=== PATIENT | male | born 1955 | race Caucasian/White ===

== ENCOUNTER → 2023-11-16 15:01 | Outpatient (REF) | payer MEDICARE, SELFPAY | LOC: RCS 15:01 | PROVIDERS: ATTENDING PHYSICIAN Family Medicine | DX: I49.9 Cardiac arrhythmia, unspecified (principal); R06.09 Other forms of dyspnea | CPT/HCPCS: 93017 ==

== ENCOUNTER 2023-11-25 08:51 | Day surgery (SDC) | payer MEDICARE, SELFPAY ==
[2023-11-25] VITALS (13 sets, daily range): BP systolic 92–129; BP diastolic 64–77; BMI 28.4
[2023-11-25] MEDS: LOW STRENGTH ASPIRIN 81 MG PO (09:16)
[2023-11-25] MEDS: NSS 269 ML IV (09:29)
--- NOTE | 2023-11-25 10:40 | ITS.CL.CATH ---
[employer] [facility] - Catheterization
Cardiac Catheterization
Procedure Report:
CARDIAC CATHETERIZATION REPORT
Date of Procedure: 11/25/2023
Referring: Juan Stanton D.O.
INDICATION: Abnormal stress test, dyspnea on exertion, atrial fibrillation.
PROCEDURE:
1. Left heart catheterization
2. Coronary angiography.
ACCESS:
6 [place] right radial artery.
CATHETERS:
1. 5 [place] JR4.
2. 5 [place] JL 3.5.
HEMODYNAMIC DATA
Weight (kg): 89.4
AO (s/d/x, mmHg): 91/69/76
LV (s/x mmHg): 92/10
LEFT VENTRICULOGRAPHY: Not performed.
CORONARY ANGIOGRAPHY
Dominance: Right.
Left Main: Normal size, bifurcating vessel. There is no coronary artery disease.
LAD: Normal size vessel giving rise to 1 significant diagonal. There is no coronary artery disease. 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
Ramus: Congenitally absent.
Circumflex: Normal size, nondominant vessel giving rise to 2 obtuse marginals. OM1 is a small, 1 mm vessel. OM 2 is a much more substantial vessel supplying the majority of the inferolateral wall. There is no coronary artery disease.
RCA: Normal size, dominant vessel. The RPDA is a small, nearly diminutive vessel that only supplies the inferior base of the interventricular septum. Mid and distal septal perforators are supplied by a branch from the acute marginal.
INTERVENTION(S)
None.
Closure Device: Vascular band.
Radiation (mGy): 286.20
DAP (cm2.Gy): 17.4585
Fluoroscopy time (minutes): 2.0
Sedation time (minutes): 16
CONCLUSIONS
1. Right dominant circulation with no coronary artery disease. 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
2. Normal filling pressures (LVEDP = 10 mmHg at 89.4 kg).
3. Symptomatic atrial fibrillation in the absence of coronary disease or elevated filling pressures.
RECOMMENDATIONS:
1. Expectant management after cardiac catheterization via right radial approach.
2. Limited weight bearing on the right wrist for one week.
3. Continue rate control with metoprolol succinate.
4. The patient would clearly benefit from rhythm control. Referral to electrophysiology for consideration of ablation.
Copy to: Juan Stanton D.O., John Herman M.D., Carolyn Gould M.D.
Juan Stanton DO, FACC, FACP
[2023-11-25] MEDS: NSS 1000 IV (10:57)
== END 2023-11-25 13:37 | disposition home or self-care (01) ==
LOC: CATH 08:51
PROVIDERS: ATTENDING PHYSICIAN Internal Medicine Cardiovascular Disease; FAMILY PHYSICIAN Family Medicine
DX: R06.09 Other forms of dyspnea (principal); R94.39 Abnormal result of other cardiovascular function study; I48.91 Unspecified atrial fibrillation; Q24.5 Malformation of coronary vessels
CPT/HCPCS: 93458; C1894; Q9967

== ENCOUNTER → 2023-12-27 12:38 | Outpatient (REF) | payer MEDICARE, SELFPAY ==
[2023-12-27 13:28] LABS: % Basophils 0.6 % (0-2); % Eosinophils 0.7 % (0-6); % Immature Granulocytes 0.4 % (0-0.5); % Lymphocytes 30.2 % (20.5-51.1); % Monocytes 7.2 % (1.7-9.3); % Neutrophils 60.9 % (42.2-75.2); Absolute Basophils 0.1 10^3/uL (0-0.2); Absolute Eosinophils 0.1 10^3/uL (0-0.7); Absolute Lymphocytes 2.5 10^3/uL (1.2-3.4); Absolute Monocytes 0.6 10^3/uL (0.1-0.6); Absolute Neutrophils 4.9 10^3/uL (1.4-6.5); Hematocrit 41.3 % (39.0-52.0); Hemoglobin 14.3 g/dL (13.0-18.0); Mean Corp Hgb Conc. 34.6 g/dL (33.0-37.0); Mean Corpuscular Hgb 29.9 pg (27.0-31.0); Mean Corpuscular Volume 86.4 fL (80.0-94.0); Mean Platelet Volume 9.8 fL (7.4-10.4); Nucleated Red Blood Cells % 0 % (-); Platelet Count 261 10^3/uL (130-400); Red Blood Cell Count 4.78 10^6/uL (4.70-6.10); Red Cell Dist. Width 13.2 % (11.5-14.5); White Blood Cell Count 8.1 10^3/uL (4.8-10.8)
[2023-12-27 13:49] LABS: ALT (SGPT) 25 U/L (0-50); AST (SGOT) 26 U/L (17-59); Albumin 4.5 g/dl (3.5-5.0); Alkaline Phosphatase 63 U/L (38-126); Blood Urea Nitrogen 20 mg/dl (9-20); Calcium 9.4 mg/dl (8.4-10.2); Carbon Dioxide 25 mmol/L (22-30); Chloride 104 mmol/L (98-107); Glucose 92 mg/dl (70-99); Sodium 139 mmol/L (135-145); Total Bilirubin 0.8 mg/dl (0.2-1.3); Total Protein 7.3 g/dl (6.3-8.2); eGFR > 60.00
[2023-12-27 13:53] LABS: Potassium 4.7 mmol/L (3.5-5.1)
== END ==
LOC: SDSPAT 12:38
PROVIDERS: ATTENDING PHYSICIAN Internal Medicine Cardiovascular Disease; FAMILY PHYSICIAN Family Medicine
DX: Z01.818 Encounter for other preprocedural examination (principal); I48.0 Paroxysmal atrial fibrillation; R06.09 Other forms of dyspnea
CPT/HCPCS: 36415; 80053; 85025

== ENCOUNTER 2024-01-10 07:21 | Day surgery (SDC) | payer MEDICARE, SELFPAY ==
[2023-12-27 12:54] VITALS: BMI 29.2
[2024-01-10] VITALS (12 sets, daily range): BP systolic 100–135; BP diastolic 66–96
[2024-01-10 12:45] LABS: ACT-LR - POC 363 Seconds (116-155)
[2024-01-10 12:45] LABS: ACT-LR - POC 308 Seconds (116-155)
[2024-01-10 13:10] LABS: ACT-LR - POC 388 Seconds (116-155)
--- NOTE | 2024-01-10 13:19 | ITS.CL.ABL ---
[employer] [facility] - Ablation
Ablation
Procedure Report:
AFIB ablation:
Mr. Szymanski is a very pleasant 68 yr old gentleman with medical history significant for symptomatic paroxysmal atrial fibrillation who is here in the EP lab for atrial fibrillation ablation
Date of Procedure:
01/10/2024
Indications:
Symptomatic atrial fibrillation
Pre-Operative Diagnosis:
Paroxysmal Atrial fibrillation
Post-Operative Diagnosis:
Paroxysmal Atrial fibrillation
Procedure Performed:
Atrial fibrillation ablation with wide area circumferential ablation (WACA) approach for pulmonary vein isolation
Performing Physician:
John Herman MD
Assistants:
EP staff
Anesthesia:
See anesthesia records
Detailed Description of the Procedure:
Written informed consent was obtained from the patient after a full explanation of the risks and benefits of the procedure including the risks of sedation and anesthesia.
The patient was brought to the electrophysiology laboratory in stable condition in fasting state. Continuous electrocardiographic and hemodynamic monitoring was initiated.
The initial rhythm was normal sinus rhythm.
The procedure site was meticulously prepared with surgical scrub and allowed to dry with no pooling. Sterile draping was applied to cover the procedure site. The image intensifier was draped with sterile bag and positioned over the patient. After
infusion of local anesthetic, vascular access was obtained under ultrasound guidance and sheaths were placed over guide wire as detailed below.
Sheath and Catheter Placement:
In the right femoral vein, an 8-Tunisian sheath was placed for use during the ablation procedure. A second 9-Fr sheath was placed for use during intracardiac echo procedure.
The sheaths were upgraded as needed during the case. Intracardiac catheters were positioned using direct fluoroscopic guidance.� ICE catheter was placed in RA. The following catheters / sheaths were placed
Sheaths:
��������������� Agilis sheath in right femoral vein upgraded from 8Fr in right femoral vein
��������������� 9Fr in right femoral vein
Catheters:
������������� [employer] Thermacool STSF bidirectional (D/F) - at locations of HRA, RV, LA and LV.
������������� Pentaray catheter � at locations of RA and LA
������������� ICE catheter - at locations of RA, SVC, and RV.
Intracardiac ECHO:
An 8-Tunisian AcuNav intracardiac ECHO (ICE) probe was advanced through the 9-Tunisian sheath in the femoral vein into the right atrium under fluoroscopic and ICE ultrasound image guidance and a baseline ECHO study was performed. The left atrial size
was normal. There was trace tricuspid regurgitation. The aortic valve was grossly normal. There was normal left ventricular size and function. There was a trace pericardial effusion. The NOE has normal velocities noted on Doppler. All the four veins
were identified and good flow noted.
During the procedure, ICE was used for monitoring of complications, guidance of trans-septal puncture, monitor the catheter position and tracking ablation lesions. No change in the pericardial space noted throughout the procedure.
Trans-septal Puncture:
Heparin was initiated and infused to maintain appropriate ACT.
A J-tipped guidewire was advanced through the 8-Tunisian sheath in the right femoral vein into the superior vena cava under fluoroscopic and ICE guidance. The 8-Tunisian sheath was exchanged for an Agilis sheath which was advanced into the superior vena
cava. A BRK needle was advanced until the tip was slightly behind the tip of the dilator inside the Agilis. The apparatus was withdrawn until it was in contact with the fossa ovalis. The position was adjusted based on fluoroscopy and ultrasound
images from ICE. Under fluoroscopic, hemodynamic and ICE ultrasound guidance, left atrium was cannulated by advancing the needle. Once atrial septum was cannulated, the needle was pulled back and a BMW guide wire was advanced through the needle into
the left atrium. The guide wire was advanced into the left superior pulmonary vein. Both the sheath and the dilator was advanced into the left atrium. The dilator with the needle was withdrawn. Blood was aspirated from the Agilis sheath and arterial
blood confirmed. The sheath was flushed. Saline injection noted into the left atrium on ICE. The pressure waveform was checked ad LA pressure measured. The penta-ray catheter was advanced in the Agilis sheath into the left pulmonary vein.
The 3-D mapping was done and then the penta-ray was switched to ablation catheter and back to penta-ray as needed.
3D Electroanatomic Mapping:
Using the Pentaray catheter advanced through Agilis sheath into the left atrium, an electroanatomic map (EAM) of the left atrium was created using [employer] Carto mapping system. The map was used for localization of catheter position and
tacking of ablation lesions. The EAM of the left atrium showed 4 pulmonary veins with all four electrically connected to the body the LA. It showed no significant scar on the posterior wall of the LA. The LA was normal in size.
Following the EAM, preparations were made for ablation.
Phrenic nerve stimulation attempt:
The right sided pulmonary veins were identified and the anterior antrum and the deep anterior locations of the PVs were check with high output stimulation that showed no phrenic nerve capture in any of the potential ablation areas. The whole of the
anterior wall was mapped and the deep veins were also tested and once no sign of phrenic capture noted, a design line was created through the areas of tested antral myocardium for ablation lesions.
Ablation:
Pulmonary vein Isolation:
Radiofrequency ablation was performed using an open irrigation, force-sensing 3.5mm radiofrequency ablation catheter (ThermocoNewsy STSF) by completing the circumferential lesions around the left and right pulmonary veins achieving pulmonary vein
isolation.
All the ablation lesions were guided by the [employer] SURPOINT module with the posterior lesions were limited to 45 colin for SURPOINT lesion index goal of 400 and anterior wall lesions were limited to SURPOINT index goal of 450.
The esophagus was noted to be on the right side of the LA near the PV antra based on the locations of the esophageal temperature probe. Ablation was stopped for any temperature increase of 0.1 degree C. Max esophageal temperature was 37.3C�
(baseline 37)
EP study / Confirmation of the PVI and bidirectional block:
Following achievement of entrance block at the pulmonary veins, pacing from the pentaray catheter in each of the four veins at 10 milliamps for 2 milliseconds showed entrance and exit block. All PVI were rechecked at the end of the case and remained
isolated with dissociated and local capture with pacing. Entrance and exit block were demonstrated in all veins.
The LA was mapped with Carto EAM in sinus rhythm confirming the line of block at the ablation lesions lines.
Sinus Node Function: The sinus node functions are within acceptable normal range.
The AV dave functions are deemed within normal range.
Arrhythmia Induction:
No sustained arrhythmia was induced at the end of the study.�
Procedure End
ICE study was done again that showed no epicardial accumulation. No complications noted.
Following the completion of the EP study, catheters were removed. Protamine 50 mg was given at the end of the procedure and ACT was checked repeatedly. The sheaths were removed and hemostasis achieved with VASCADE and manual compression after
acceptable ACT is achieved.
Left atrial Pressure:
Pre-Procedure: Mean LA pressure was 16mmHg
Post-Procedure: Mean LA pressure was 16mmHg
Post-Procedure: Mean RA pressure was 13mmHg
Estimated Blood loss:
<10 cc
Specimens Removed:
None.
Implants / Devices:
None
Urine output:
None
Packs / Drains/ Tubes:
None
Instrument / Sponge Count Correct:
Yes
Complications of the Procedure:
None
Condition of Patient at Time of Transfer:
Hemodynamically stable with no neurological or vascular compromise.
Summary:
Successful atrial fibrillation ablation with circumferential bidirectional line of block at pulmonary vein antra (Pulmonary vein isolation)
[2024-01-10] MEDS: ZOFRAN 4 MG IV (14:27)
--- NOTE | 2024-01-10 16:02 | W.PN.UPDATE ---
Update Note
Progress Note Update
Pt seen post PVI. Right groin with vascade closure, no ht/bleeding, non tender. OOB to chair, urinating without difficulty. Post EKG NSR 60s, no acute changes. Resume eliquis tonight. 2 week course protonix provided post procedure. Followup at [facility]
as scheduled. Home later today if groin site/tele remain stable.
== END 2024-01-10 16:30 | disposition home or self-care (01) ==
LOC: CATH 07:21
PROVIDERS: ATTENDING PHYSICIAN Internal Medicine Cardiovascular Disease; PRIMARYCARE PHYSICIAN Family Medicine
DX: I48.0 Paroxysmal atrial fibrillation (principal); R06.09 Other forms of dyspnea; E78.1 Pure hyperglyceridemia; Z79.82 Long term (current) use of aspirin; Z79.01 Long term (current) use of anticoagulants
CPT/HCPCS: C1769; C1732; C1894; C1766; C1892; C1759; 76937; 85347; 86850; 86900; 86901; 93005; 93656; C1760